=== PATIENT | female | born 1985 | race Caucasian/White ===

== ENCOUNTER 2025-03-03 10:19 | Inpatient (IN) | payer OTHER ==
[2025-03-03 10:45] VITALS: BMI 19.5
[2025-03-03] MEDS ORDERED: BENZONATATE 200 MG CAPSULE PO PRN (10:55)
[2025-03-03] MEDS ORDERED: IBUPROFEN 400 MG TABLET (FP) PO PRN (10:55)
[2025-03-03] MEDS ORDERED: guaiFENesin 600 MG TABLET.ER (FP) PO PRN (10:55)
[2025-03-03] MEDS ORDERED: NICOTINE POLACRILEX 2 MG LOZENGE BC PRN (10:55)
[2025-03-03] MEDS ORDERED: BENZOCAINE/MENTHOL (CHLORASEPTIC ) LOZENGE MM PRN (10:55)
[2025-03-03] MEDS ORDERED: NICOTINE POLACRILEX 2 MG GUM BUC PRN (10:55)
[2025-03-03] MEDS ORDERED: NALOXONE (NARCAN) HCL 4 MG/0.1 ML SPRAY NS PRN (10:55)
[2025-03-03] MEDS: SULFAMETHOXAZOLE/TRIMETHOPRIM 800MG/160MG D.S. TABLET PO SCH (12:10)
[2025-03-03] MEDS: TUBERCULIN PPD 5 TU/0.1ML SYRINGE (IN PATIENT USE ONLY) ID ONE (15:05)
[2025-03-03] MEDS: MELATONIN 5 MG TABLETS PO SCH (22:05)
[2025-03-03] MEDS: THIAMINE 100 MG TABLET PO SCH (22:05)
[2025-03-03] MEDS: P-EPHED 60MG/TRIPROLIDI 2.5MG TABLET PO PRN (22:06)
[2025-03-03] MEDS ORDERED: ONDANSETRON *ODT* 4 MG TABLET SL PRN (23:15)
[2025-03-04] MEDS: PRENATAL VITAMINS W/ FOLIC ACID TABLET (FP) PO SCH (09:16)
[2025-03-04 13:41] LABS: MCHC 31.8 g/dl (32.2-35.5); MEAN CELL VOLUME 89.3 fl (79.4-94.8); MEAN PLT VOLUME 9.6 fl (9.4-12.3); RDW 13.8 % (12.1-16.8)
[2025-03-04 14:00] LABS: GLUCOSE,RANDOM 95.0 mg/dL (74-106)
[2025-03-04 14:01] LABS: TOT PROT 7.4 g/dl (6.4-8.2)
[2025-03-04 14:02] LABS: CO2 25.0 mmol/L (21-32)
[2025-03-04 14:03] LABS: ALK PHOS 91.0 U/L (40-150)
[2025-03-04 14:06] LABS: CREATININE 0.81 mg/dL (0.55-1.3); SGOT/AST 27.0 U/L (5-34); SGPT/ALT 21.0 U/L (0-55)
[2025-03-04 14:29] LABS: SYPHILIS W/ RPR CONF NON-REACTIVE (NONREACTIVE)
[2025-03-04 15:12] LABS: HCV DIAGNOSTIC IN-HOUSE W/RFLX REACTIVE (NONREACTIVE)
[2025-03-04] MEDS: IBUPROFEN 600 MG TABLET (FP) PO PRN (21:25)
[2025-03-05] MEDS: ACETAMINOPHEN 325 MG TABLET (FP) PO PRN (17:51)
[2025-03-06 18:33] LABS: URINE APPEARANCE Clear; URINE BILIRUBIN Negative (NEGATIVE); URINE COLOR Yellow; URINE GLUCOSE (UA) Negative (NEGATIVE); URINE KETONE Negative (NEGATIVE); URINE LEUK ESTERASE Negative (NEGATIVE); URINE NITRITE Negative (NEGATIVE); URINE PROTEIN Negative (NEGATIVE); URINE UROBILINOGEN 0.2 mg/dL (0.2-1.0)
[2025-03-09] MEDS: hydrOXYzine PAMOATE 25 MG CAPSULE (FP) PO PRN (16:42)
[2025-03-09] MEDS: MELATONIN 5 MG TABLETS PO SCH (21:11)
[2025-03-09] MEDS: METHOCARBAMOL 500 MG TABLET PO PRN (21:11)
[2025-03-11] MEDS: MAG HYDROX/AL HYDROX/SIMETH 30 ML UNIT-DOSE CUP PO PRN (06:19)
[2025-03-12] MEDS: LOPERAMIDE HCL 2 MG CAPSULE PO PRN (05:37)
[2025-03-19] MEDS: MAGNESIUM HYDROX 2400MG/30ML ORAL SUSPENSION 30 ML CUP PO PRN (10:16)
[2025-03-19] MEDS: VITAMINS A AND D TOPICAL OINTMENT TP SCH (15:28)
[2025-03-19 21:52] LABS: URINE APPEARANCE CLEAR; URINE BILIRUBIN NEGATIVE (NEGATIVE); URINE COLOR YELLOW; URINE GLUCOSE (UA) NEGATIVE (NEGATIVE); URINE KETONE NEGATIVE (NEGATIVE)
[2025-03-19 21:53] LABS: URINE LEUK ESTERASE NEGATIVE (NEGATIVE); URINE NITRITE NEGATIVE (NEGATIVE); URINE PROTEIN NEGATIVE (NEGATIVE); URINE UROBILINOGEN 0.2 mg/dL (0.2-1.0)
[2025-03-19] MEDS: POLYETHYLENE GLYCOL (HEALTHYLAX) 3350 17 GM PACKET PO PRN (21:56)
[2025-03-22 06:50] VITALS: RESP 18
[2025-03-23] MEDS ORDERED: BENZOCAINE 20 % GEL TUBE MM PRN (11:00)
[2025-03-24 07:02] VITALS: BP 114/81; PULSE 97; TEMP 96.6
== END 2025-03-24 09:55 | disposition home or self-care (01) | DRG 772 ==
LOC: YASAS 10:19 → Y3NR 11:39 → Y5N 03-05 11:29
PROVIDERS: ADMIT Neuromusculoskeletal Medicine & OMM; ATTEND Psychiatry & Neurology Pain Medicine
PROC: HZ42ZZZ Group Counseling for Substance Abuse Treatment, Cognitive-Behavioral (ICD-10-PCS; principal; 2025-03-03)
DX: F14.20 Cocaine dependence, uncomplicated (principal); F11.20 Opioid dependence, uncomplicated; F17.210 Nicotine dependence, cigarettes, uncomplicated; A59.01 Trichomonal vulvovaginitis; N89.8 Other specified noninflammatory disorders of vagina
CPT/HCPCS: 36415; 80053; 80305; 80307; 81003; 81025; 85027; 86780; 86803; 87491; 87522; 87591; 87661; 87811; 93005; 93010